=== PATIENT | female | born 1985 | race American Indian/Alaskan Native ===

== ENCOUNTER 2017-05-12 08:58 | Emergency (ER) | payer OTHER ==
--- NOTE | 2017-05-12 09:24 | Emergency Department Report ---
Chief Complaint: Urogenital-Female Stated Complaint: PREG, VAGINAL BLEEDING AND ABDOMINAL PAIN - HPI History of Present Illness: 32-year-old female that presents with dysuria, hematuria, and urgency 1 day. Patient stated when she was wiping after voiding she noticed blood. Patient currently denies any abdominal pain or any vaginal bleeding. - Exam Vital Signs: Vital Signs 05/12/17 09:13 Temperature 98.4 F Pulse Rate 77 Respiratory 18 Rate Blood Pressure 128/81 O2 Sat by Pulse 99 Oximetry Physical Exam: ABDOMEN: Soft, nontender, and nondistended. Positive bowel sounds. No hepatosplenomegaly was noted. No guarding or rebound tenderness, negative epigastric bruit. Negative psoas sign, negative dillon sign, negative McBurneys sign MSE screening note: Focused history and physical exam performed. Due to findings the following was ordered: 1- This initial assessment/diagnostic orders/clinical plan/ treatment(s) is/are subject to change based on pt's health status, clinical progression and re- assessment by fellow clinical providers in the ED. Further treatment and workup at subsequent clinical provers discretion. Patient/guardians urged not to elope from ED as their condition may be serious if not clinically assessed and managed. 2-UA, CBC, BMB, type and screen, preg natacha 3-u/s ED Disposition for MSE Condition: Stable
[2017-05-12 09:53] LABS: Basophils % (Auto) 0.3 % (0.0-1.8); Eosinophils % (Auto) 0.4 % (0.0-4.3); Hematocrit 37.9 % (30.3-42.9); Hemoglobin 12.9 gm/dl (10.1-14.3); Mean Corpuscular HGB Conc 34 % (30-34); Mean Corpuscular Hemoglobin 31 pg (28-32); Mean Corpuscular Volume 92 fl (79-97); Platelet Count 160 K/mm3 (140-440); Red Cell Distribution Width 12.8 % (13.2-15.2); White Blood Count 16.2 K/mm3 (4.5-11.0)
[2017-05-12 10:10] LABS: Anion Gap 16 mmol/L; BUN/Creatinine Ratio 15; Blood Urea Nitrogen 9 mg/dL (7-17); Calcium 9.1 mg/dL (8.4-10.2); Carbon Dioxide 22 mmol/L (22-30); Chloride 100.4 mmol/L (98-107); Glucose 86 mg/dL (65-100); Potassium 4.2 mmol/L (3.6-5.0); Sodium 134 mmol/L (137-145)
--- NOTE | 2017-05-12 11:57 | Ultrasound Report ---
OB ULTRASOUND History well being. Technique: Transabdominal ultrasound with Doppler interrogation. Gestation: Single Position: Transverse, head to maternal right Amniotic Fluid: Within normal limits LISA = not measured cm Placenta: Anterior Placental Grade: 0 Heart Rate: 158 BPM Cervical length: 5.5 cm (Normal > 3 cm) x It is too early for a anatomical survey BPD: 2.5 cm = 14 w 2 d HC: 9.1 cm = 14 w 0 d AC: 7.5 cm = 14 w 0 d FL: 1.3 cm = 14 w 0 d HC/AC Ratio: 1.2 Cephalic Index: 80.2 LMP: 02/11/17 Clinical age = 12 w 6 d EDC: 11/18/17 US Gest. Age = 14 w 1 d EDC: 11/09/17 IMPRESSION: Viable, single intrauterine as described.
[2017-05-12 13:19] LABS: Bacteria,Urine 2+ /HPF (Negative); Bilirubin,Urine NEG (Negative); Blood,Urine LG (Negative); Ketones,Urine NEG (Negative); Leukocyte Esterase,Urine LG (Negative); Mucus,Urine FEW /HPF; Nitrite,Urine NEG (Negative); Protein,Urine <15 mg/dL mg/dL (Negative); Urobilinogen,Urine < 2.0 mg/dL (<2.0)
--- NOTE | 2017-05-12 16:58 | Emergency Department Report ---
HPI - General Chief Complaint: Urogenital-Female Time Seen by Provider: 05/12/17 16:33 - HPI HPI: Room 24 The patient is a 32-year-old female presenting with chief complaint of abdominal pain. The patient is approximately 12 weeks states this morning she developed urinary frequency and abdominal pain. Patient states she had a small amount of burning with urinating. The patient states after wiping herself she noticed blood on the tissue and some on the toilet. The patient states she cannot say with certainty where the blood was coming from she has not had any in her underwear. Patient denies fever, nausea/vomiting or shortness of breath. Location: Abdomen Duration: One day Quality: Burning Severity: Moderate Modifying factors: [see above] Context: [see above] Mode of transportation: Unknown ED Past Medical Hx - Past Medical History Previous Medical History?: Yes - Surgical History Past Surgical History?: Yes Additional Surgical History: x 2, x 1, Left jaw surgery - Family History Family history: no significant - Social History Smoking Status: Never Smoker Substance Use Type: None - Medications Home Medications: Home Medications Medication Instructions Recorded Confirmed Last Taken Type Nitrofurantoin Monohyd/M-Cryst 100 mg PO BID #20 capsule 05/12/17 Unknown Rx [Macrobid 100 mg Capsule] ED Review of Systems ROS: Stated complaint: PREG, VAGINAL BLEEDING AND ABDOMINAL PAIN Other details as noted in HPI Constitutional: chills. denies: fever Respiratory: denies: shortness of breath Gastrointestinal: abdominal pain. denies: nausea, vomiting Genitourinary: dysuria, hematuria, abnormal menses Physical Exam - Physical Exam Vital Signs: Vital Signs 05/12/17 05/12/17 05/12/17 09:13 13:32 13:36 Temperature 98.4 F 98.3 F Pulse Rate 77 81 Respiratory 18 18 Rate Blood Pressure 128/81 Blood Pressure 127/80 [Right] O2 Sat by Pulse 99 99 99 Oximetry 05/12/17 05/12/17 05/12/17 13:46 14:00 14:16 Temperature Pulse Rate Respiratory Rate Blood Pressure 127/80 128/86 128/86 Blood Pressure [Right] O2 Sat by Pulse 98 100 97 Oximetry 05/12/17 05/12/17 05/12/17 14:30 14:46 15:00 Temperature Pulse Rate Respiratory Rate Blood Pressure 128/86 128/86 131/73 Blood Pressure [Right] O2 Sat by Pulse 97 98 97 Oximetry 05/12/17 15:16 Temperature Pulse Rate Respiratory Rate Blood Pressure 128/86 Blood Pressure [Right] O2 Sat by Pulse 99 Oximetry Physical Exam: GENERAL: The patient is well-developed well-nourished female lying on a stretcher not appearing to be in acute distress. [] HEENT: Normocephalic. Atraumatic. Extraocular motions are intact. Patient has moist mucous membranes. NECK: Supple. Trachea midline CHEST/LUNGS: Clear to auscultation. There is no respiratory distress noted. HEART/CARDIOVASCULAR: Regular. There is no tachycardia. There is no gallop rub or murmur. ABDOMEN: Abdomen is soft, with discomfort to palpation in the suprapubic region. Patient has normal bowel sounds. There is no abdominal distention. SKIN: There is no rash. There is no edema. There is no diaphoresis. NEURO: The patient is awake, alert, and oriented. The patient is cooperative. The patient has normal speech MUSCULOSKELETAL: There is no evidence of acute injury. ED Course Vital Signs 05/12/17 05/12/17 05/12/17 09:13 13:32 13:36 Temperature 98.4 F 98.3 F Pulse Rate 77 81 Respiratory 18 18 Rate Blood Pressure 128/81 Blood Pressure 127/80 [Right] O2 Sat by Pulse 99 99 99 Oximetry 05/12/17 05/12/17 05/12/17 13:46 14:00 14:16 Temperature Pulse Rate Respiratory Rate Blood Pressure 127/80 128/86 128/86 Blood Pressure [Right] O2 Sat by Pulse 98 100 97 Oximetry 05/12/17 05/12/17 05/12/17 14:30 14:46 15:00 Temperature Pulse Rate Respiratory Rate Blood Pressure 128/86 128/86 131/73 Blood Pressure [Right] O2 Sat by Pulse 97 98 97 Oximetry 05/12/17 15:16 Temperature Pulse Rate Respiratory Rate Blood Pressure 128/86 Blood Pressure [Right] O2 Sat by Pulse 99 Oximetry ED Medical Decision Making - Lab Data Result diagrams: 05/12/17 09:35 05/12/17 09:35 Laboratory Tests 05/12/17 05/12/17 05/12/17 09:35 09:35 09:35 WBC 16.2 H RBC 4.10 Hgb 12.9 Hct 37.9 MCV 92 MCH 31 MCHC 34 RDW 12.8 L Plt Count 160 Lymph % (Auto) 10.7 L [place] % (Auto) 5.4 Eos % (Auto) 0.4 Baso % (Auto) 0.3 Lymph # 1.7 [place] # 0.9 H Eos # 0.1 Baso # 0.0 Seg Neutrophils % 83.2 H Seg Neutrophils # 13.5 H Sodium 134 L Potassium 4.2 Chloride 100.4 Carbon Dioxide 22 Anion Gap 16 BUN 9 Creatinine 0.6 L Estimated GFR > 60 BUN/Creatinine Ratio 15 Glucose 86 Calcium 9.1 HCG, Quant 60353 H Urine Color Urine Turbidity Urine pH Ur Specific [place] Urine Protein Urine Glucose (UA) Urine Ketones Urine Blood Urine Nitrite Urine Bilirubin Urine Urobilinogen Ur Leukocyte Esterase Urine WBC (Auto) Urine RBC (Auto) U Epithel Cells (Auto) Urine Bacteria (Auto) Urine Mucus Blood Type Antibody Screen 05/12/17 05/12/17 09:35 12:38 WBC RBC Hgb Hct MCV MCH MCHC RDW Plt Count Lymph % (Auto) [place] % (Auto) Eos % (Auto) Baso % (Auto) Lymph # [place] # Eos # Baso # Seg Neutrophils % Seg Neutrophils # Sodium Potassium Chloride Carbon Dioxide Anion Gap BUN Creatinine Estimated GFR BUN/Creatinine Ratio Glucose Calcium HCG, Quant Urine Color Yellow Urine Turbidity Clear Urine pH 6.0 Ur Specific [place] 1.003 Urine Protein <15 mg/dl Urine Glucose (UA) Neg Urine Ketones Neg Urine Blood Lg Urine Nitrite Neg Urine Bilirubin Neg Urine Urobilinogen < 2.0 Ur Leukocyte Esterase Lg Urine WBC (Auto) 61.0 H Urine RBC (Auto) 9.0 U Epithel Cells (Auto) < 1.0 Urine Bacteria (Auto) 2+ Urine Mucus Few Blood Type O POSITIVE Antibody Screen Negative - Radiology Data Radiology results: report reviewed (pelvic ultrasound), image reviewed (pelvic ultrasound) OB ULTRASOUND History well being. Technique: Transabdominal ultrasound with Doppler interrogation. Gestation: Single Position: Transverse, head to maternal right Amniotic Fluid: Within normal limits LISA = not measured cm Placenta: Anterior Placental Grade: 0 Heart Rate: 158 BPM Cervical length: 5.5 cm (Normal > 3 cm) x It is too early for a anatomical survey BPD: 2.5 cm = 14 w 2 d HC: 9.1 cm = 14 w 0 d AC: 7.5 cm = 14 w 0 d FL: 1.3 cm = 14 w 0 d HC/AC Ratio: 1.2 Cephalic Index: 80.2 LMP: 02/11/17 Clinical age = 12 w 6 d EDC: 11/18/17 US Gest. Age = 14 w 1 d EDC: 11/09/17 IMPRESSION: Viable, single intrauterine as described. Transcribed By: TTR Dictated By: AINSLEY MARTINEZ JR, MD Electronically Authenticated By: AINSLEY MARTINEZ JR, MD Signed Date/Time: 05/12/17 1152 DD/ 1148 TD/TT: 05/12/17 1152 - Differential Diagnosis threatened , UTI, spontaneous Critical care attestation.: If time is entered above; I have spent that time in minutes in the direct care of this critically ill patient, excluding procedure time. ED Disposition Clinical Impression: UTI (urinary tract infection), Threatened Disposition: DC-01 TO HOME OR SELFCARE Is pt being admited?: No Does the pt Need Aspirin: No Condition: Stable Instructions: Threatened Miscarriage (ED), Urinary Tract Infection in Women (ED ) Additional Instructions: Return to the emergency department immediately should you develop worsening symptoms, fever, inability to tolerate food or liquid or any other concerns. Prescriptions: Nitrofurantoin Monohyd/M-Cryst [Macrobid 100 mg Capsule] 100 mg PO BID #20 capsule Referrals: [facility] [Provider Group] - 3-5 Days Time of Disposition: 17:03
[2017-05-12 17:14] VITALS: BP 146/92
== END 2017-05-12 17:19 | disposition home or self-care (01) ==
LOC: ED 08:58
DX: O23.41 Unspecified infection of urinary tract in pregnancy, first trimester (principal); O20.0 Threatened abortion; Z3A.12 12 weeks gestation of pregnancy
CPT/HCPCS: 36415; 76805; 80048; 81001; 84702; 85025; 86850; 86900; 86901; 87086

== ENCOUNTER 2017-10-08 16:49 | Observation (INO) | payer OTHER ==
--- NOTE | 2017-10-08 22:03 | History and Physical Report ---
History of Present Illness Date of examination: 10/08/17 Date of admission: 10/08/17 20:14 Chief complaint: Elevated BP's History of present illness: Pt is a 32yo BF EDC 11/18/17; EGA 34 1/7 weeks presents from the office of [facility] [employer] [facility] for BP monitoring for Chronic hypertension with suspected superimposed preeclampsia. Her BP was 165/99 and 154/94 despite being on Labetolol 300mg BID. She complains of headaches and swollen hands, but denies blurred vision, contractions or bleeding. She has a history of Preeclampsia, Previous C Section x 2 and Chronic hypertension for which she is co-managed by [facility]. She will now be admitted for evaluation of Preeclampsia with PIH labs, 24hour urine for protein and BPP with LISA. 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 Family/Genetic History: heart disease, hypertension, cancer Social history: no significant social history, - Obstetrical History Expected Date of Delivery: 11/18/17 Actual Gestation: 34 Week(s) 1 Day(s) Medications and Allergies Allergies Allergy/AdvReac Type Severity Reaction Status Date / Time No Known Allergies Allergy Unverified 05/12/17 09:13 Home Medications Medication Instructions Recorded Confirmed Last Taken Type Nitrofurantoin Monohyd/M-Cryst 100 mg PO BID #20 capsule 05/12/17 Unknown Rx [Macrobid 100 mg Capsule] Review of Systems All systems: negative - Physical Exam Breasts: Positive: deferred Cardiovascular: Regular rate Lungs: Positive: Clear to auscultation Abdomen: Positive: normal appearance Genitourinary (Female): Positive: normal external genitalia Uterus: Positive: enlarged - Obstetrical FHR: category 1 Uterine Contraction Monitor Mode: External Uterine Contraction Pattern: Absent Results All other labs normal. Assessment and Plan - Patient Problems (1) 34 weeks gestation of Onset Date: 10/08/17 Current Visit: Yes Status: Acute Plan to address problem: A: IUP @ 34 1/7 weeks Chronic hypertension with superimposed preeclampsia Previous C Section x 2 Obesity P: Admit for Observation and evaluation for Preeclampsia (PIH labs, 24 hour urine for protein, BPP with LISA in AM) [facility] consultation (2) Previous section Onset Date: 10/08/17 Current Visit: Yes Status: Acute (3) Chronic hypertension with superimposed pre-eclampsia Onset Date: 10/08/17 Current Visit: Yes Status: Acute (4) Obesity Onset Date: 10/08/17 Current Visit: Yes Status: Acute Qualifiers: Obesity type: due to excess calories Obesity classification: adult class 1 (BMI 30 - 34.9)
[2017-10-08] MEDS ORDERED: APRESOLINE IV PRN (22:24)
[2017-10-08 23:10] LABS: Hematocrit 32.5 % (30.3-42.9); Hemoglobin 11.1 gm/dl (10.1-14.3); Mean Corpuscular HGB Conc 34 % (30-34); Mean Corpuscular Hemoglobin 31 pg (28-32); Mean Corpuscular Volume 91 fl (79-97); Platelet Count 145 K/mm3 (140-440); Red Blood Count 3.57 M/mm3 (3.65-5.03); Red Cell Distribution Width 13.1 % (13.2-15.2)
[2017-10-08] MEDS: CELESTONE SOLUSPAN IM SCH (23:15)
[2017-10-08] MEDS: NORMODYNE PO SCH (23:16)
[2017-10-08 23:23] LABS: BUN/Creatinine Ratio 20; Blood Urea Nitrogen 12 mg/dL (7-17); Calcium 8.4 mg/dL (8.4-10.2); Hemolysis Index 2
[2017-10-08] MEDS: TYLENOL PO PRN (23:24)
[2017-10-09] MEDS: LACTATED RINGERS 1,000 ML IV SCH ×3 (01:40→18:08)
--- NOTE | 2017-10-09 02:28 | Ultrasound Report ---
FINAL REPORT EXAM: US OB BPP WO NON-STRESS, US OB LIMITED HISTORY: well being, LISA. Chronic hypertension. TECHNIQUE: Directed limited transabdominal ultrasound examination of the gravid pelvis was performed. No prior studies are available for comparison. FINDINGS: The patient reports her last menstrual period 02/11/2017, corresponding to current gestational age of 34 weeks, 1 day. A single live intrauterine gestation is seen, with cephalic presentation. The amniotic fluid index measures 8.9 cm, within normal limits. The biophysical profile is 8/8. cardiac activity is identified, with a heart rate of 155 beats per minute. IMPRESSION: 1. Biophysical profile 8/8. 2. Normal amniotic fluid index, measuring 8.9 cm.
--- NOTE | 2017-10-09 08:36 | Progress Note ---
Assessment and Plan A: 32-year-old at 34+2 weeks with chronic hypertension r/o Pre-E -Cat 1 tracing -Labile BP's - 133-148/70-90's Issues -No MFM consultation since ~24 wks (?complains about cost) -CHTN on Labetalol 300mg BID -Previous C/S # 2 -Previous hx of Pre-E -s/p BMZ course -s/p BPP 01/27 (10/08/17) -no growth on chart at this time P: -Await 24-hour urine protein and liver function tests -MFM consultation placed -Growth scan now -Type and screen -Continue ASA -Discussed permanent sterilization and provided consent form - Patient Problems (1) 34 weeks gestation of Onset Date: 10/08/17 Current Visit: Yes Status: Acute (2) Previous section Onset Date: 10/08/17 Current Visit: Yes Status: Acute (3) Hypertension affecting in third trimester Current Visit: Yes Status: Acute Subjective - Subjective Date of service: 10/09/17 Principal diagnosis: IUP at 34+2 wks, CHTN r/o Pre-E Interval history: Patient seen and examined, stable and well. BP range has been 133-148/70-90, she has no signs or symptoms of preeclampsia at this time, headache last night resolved. She is in process of completing her Celestone course and 24-hour urine protein is in progress BPP last night 8 out of 8 and LISA ~ 9 HELLP labs wnl but await LFT's Patient reports: new complaints, movement normal, no loss of fluid, no vaginal bleeding, no contractions Objective - Vital Signs Vital Signs: Vital Signs - 12hr 10/08/17 10/09/17 10/09/17 23:16 00:05 04:03 Temperature 98 F 97.8 F Pulse Rate 100 H 84 95 H Respiratory 18 18 Rate Blood Pressure 137/82 Blood Pressure 133/79 141/82 [Left] O2 Sat by Pulse 98 95 Oximetry 10/09/17 10/09/17 07:41 07:42 Temperature 97.7 F Pulse Rate 94 H Respiratory 18 Rate Blood Pressure Blood Pressure 123/75 [Left] O2 Sat by Pulse Oximetry - Exam Abdomen: Present: normal appearance, soft. Absent: distention, tenderness, guarding, rigidity Uterus: Absent: firm FHR: category 1 - Labs Labs: Abnormal Labs 10/08/17 10/08/17 22:56 22:56 WBC 11.4 H RBC 3.57 L RDW 13.1 L Creatinine 0.6 L Glucose 134 H Laboratory Results - last 24 hr 10/08/17 10/08/17 10/08/17 22:56 22:56 22:56 WBC 11.4 H RBC 3.57 L Hgb 11.1 Hct 32.5 MCV 91 MCH 31 MCHC 34 RDW 13.1 L Plt Count 145 Sodium 138 Potassium 4.0 Chloride 103.1 Carbon Dioxide 22 Anion Gap 17 BUN 12 Creatinine 0.6 L Estimated GFR > 60 BUN/Creatinine Ratio 20 Glucose 134 H Uric Acid 3.9 Calcium 8.4
[2017-10-09] MEDS: NORMODYNE PO SCH ×2 (09:59→22:34)
[2017-10-09] MEDS ORDERED: BABY ASPIRIN PO SCH (10:00)
[2017-10-09] MEDS: TYLENOL PO PRN (10:01)
--- NOTE | 2017-10-09 12:31 | Consultation ---
History of Present Illness Reason for consult: other (Pt is a 32yo BF EDC 11/18/17; EGA 34 2/7 weeks presented from the office of [facility] for BP monitoring for Chronic hypertension with suspected superimposed preeclampsia. Her BP was 165/99 and 154 /94 despite being on Labetolol 300mg BID. She complained of headaches and swollen hands, but denied blurred vision, contractions or bleeding. Previous C Section x 2 and Chronic hypertension for which she was co-managed by [facility]. Pt missed last 6 appt. Last appointment was 08/10/17 @ 25.5 weeks She was admitted for evaluation of superimposed Preeclampsia with PIH labs, 24hour urine for protein and BPP . During today's consult serial BP of 126/75 and 134/ 73 mm Hg . 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 Family/Genetic History: heart disease, hypertension, cancer - Obstetrical History : 4 Medications and Allergies Allergies Allergy/AdvReac Type Severity Reaction Status Date / Time No Known Allergies Allergy Unverified 05/12/17 09:13 Home Medications Medication Instructions Recorded Confirmed Last Taken Type No Known Home Medications [No 10/09/17 10/09/17 Unknown History Reported Home Medications] Active Meds: Active Medications Acetaminophen (Tylenol) 650 mg PO Q6H PRN PRN Reason: Pain, Mild (1-3) Last Admin: 10/09/17 10:01 Dose: 650 mg Aspirin (Baby Aspirin) 81 mg PO QDAY [facility] Betamethasone Acet/Betameth SodPhos (Celestone Soluspan) 12 mg IM Q24H LUCIANA Stop: 10/09/17 22:01 Last Admin: 10/08/17 23:15 Dose: 12 mg Hydralazine HCl (Apresoline) 5 mg IV Q30MIN PRN PRN Reason: Hypertension Lactated Ringer's (Lactated Ringers) 1,000 mls @ 125 mls/hr IV DIRECT LUCIANA Last Admin: 10/09/17 10:14 Dose: 125 mls/hr Labetalol HCl (Normodyne) 300 mg PO BID [facility] Last Admin: 10/09/17 09:59 Dose: 300 mg Review of Systems Constitutional: no fever Eyes: other (scotoma ), no blurred vision, no photophobia Cardiovascular: high blood pressure (under medical regimen . Serial BP of 126/ 75 and 134/73 mm Hg ), no chest pain Respiratory: no shortness of breath Breasts: deferred Gastrointestinal: no abdominal pain, no nausea, no vomiting, no indigestion Genitourinary: other (voiding w/out difficulty ), no vaginal bleeding, no vaginal discharge, no leakage of fluid, no pelvic pain, no contractions Rectal Exam: deferred Musculoskeletal: no low back pain Integumentary: no rash Neurological: no headaches Hematologic/Lymphatic: no easy bruising - Vital Signs Vital signs: Vital Signs Temp Pulse Resp BP 98.4 F 82 18 148/93 10/08/17 20:05 10/08/17 20:05 10/08/17 20:05 10/08/17 20:05 Temp Pulse Resp BP Pulse Ox 97.7 F 94 H 20 126/75 95 10/09/17 07:41 10/09/17 09:59 10/09/17 10:01 10/09/17 09:59 10/09/17 04:03 - Physical Exam Breasts: Positive: deferred Cardiovascular: Regular rate Lungs: Positive: Normal air movement Abdomen: Negative: tenderness, guarding Uterus: Positive: other (gravid ). Negative: tender Deep Tendon Reflex Grade: Normal +2 - Obstetrical FHR: category 1 Uterine Contraction Monitor Mode: External Uterine Contraction Pattern: Absent Results Result Diagrams: 10/08/17 22:56 10/08/17 22:56 Abnormal lab results 10/08/17 10/08/17 Range/Units 22:56 22:56 WBC 11.4 H (4.5-11.0) K/mm3 RBC 3.57 L (3.65-5.03) M/mm3 RDW 13.1 L (13.2-15.2) % Creatinine 0.6 L (0.7-1.2) mg/dL Glucose 134 H (65-100) mg/dL All other labs normal. 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 Jenkins
--- NOTE | 2017-10-09 17:17 | Ultrasound Report ---
FINAL REPORT EXAM: US OB FOLLOW UP HISTORY: CHTN TECHNIQUE: Ultrasound evaluation of the gravid uterus PRIORS: 10/08/2017 FINDINGS: There is a single viable intrauterine with documented cardiac activity. Multiple ultrasound measurements are made to determine a composite gestational age. ratios are within normal limits. There is no evidence of placenta previa or abruption. The maternal cervix is obscured by head. The quantity of visualized amniotic fluid appears grossly normal. No sonographic abnormality in the limited visualized portion of the anatomy. Heart rate: 138 beats per minute position: Cephalic Placental position: Anterior, grade 1 Amniotic fluid index: 7.5cm Estimated weight: 2656 g Growth percentile by ultrasound: 76 Ultrasound estimated gestational age: 35 weeks 0 days Ultrasound estimated delivery date: 11/13/2017 LMP estimated gestational age: 34 weeks 2 days LMP estimated delivery date: 11/18/2017 IMPRESSION: Single viable intrauterine with the above parameters
[2017-10-09 18:05] LABS: Total Volume,Urine 6200
[2017-10-09] MEDS: CELESTONE SOLUSPAN IM SCH (22:33)
[2017-10-10 00:08] VITALS: BP 132/82
[2017-10-10] MEDS: LACTATED RINGERS 1,000 ML IV SCH (02:22)
--- NOTE | 2017-10-10 06:58 | Discharge Summary ---
Providers - Providers Date of Admission: 10/08/17 20:14 Date of discharge: 10/10/17 Attending physician: SUZANNE BARTON MD 10/09/17 08:30 Consult to Physician [CONS] Routine Comment: Consulting Provider: LORI GUTIERREZ Physician Instructions: Reason For Exam: pre-eclampsia at 34 wks Primary care physician: SUZANNE BARTON MD Hospitalization Reason for admission: IUP - (IUP at 34+1 chronic hypertension rule out superimposed), observation Discharge diagnosis: other (IUP at 34+3 with chronic hypertension) Hospital course: Pt is a 32yo BF EDC 11/18/17; EGA 34 1/7 weeks presents from the office of [facility] [employer] for BP monitoring for Chronic hypertension with suspected superimposed preeclampsia. Her BP was 165/99 and 154/94 despite being on Labetolol 300mg BID. She complains of headaches and swollen hands, but denies blurred vision, contractions or bleeding. She has a history of Preeclampsia, Previous C Section x 2 and Chronic hypertension for which she is co-managed by [facility]. She will now be admitted for evaluation of Preeclampsia with PIH labs, 24hour urine for protein and BPP with LISA. Patient's blood pressure on admission ranged from 120-140/70-90; HELLP labs were negative She was asymptomatic for preeclampsia 24 hour urine protein obtained was 248mg She had a growth scan and BPP which were within normal He was seen by MFM on consultation basis Completed a course of steroids yesterday (10/09/17) She is discharged home at 34+3 weeks in stable condition to follow-up in clinic and MFM office Note that she signed tubal ligation consent form Condition at discharge: Good Disposition: DC-01 TO HOME OR SELFCARE - Discharge Diagnoses (1) 34 weeks gestation of Status: Acute (2) Previous section Status: Acute (3) Hypertension affecting in third trimester Status: Acute Plan - Provider Discharge Summary Activity: no sex for 6 weeks, no heavy lifting 4 weeks, no strenuous exercise Diet: routine Additional instructions: [] Smoking cessation referral if applicable(refer to patient education folder for contact #) [] Refer to [facility] Booklet Call your doctor immediately for: * Fever > 100.5 * Heavy vaginal bleeding ( >1 pad per hour) * Severe persistent headache * Shortness of breath * Reddened, hot, painful area to leg or breast * Drainage or odor from incision. * Keep incision clean and dry at all times and follow doctor's instructions regarding bathing/showering - Follow up plan Follow up: SUZANNE BARTON MD [Primary Care Provider] - 7 Days RANGEL INIGUEZ MD [Staff Physician] - 7 Days
== END 2017-10-10 07:20 | disposition home or self-care (01) ==
LOC: TRG 16:49 → LD 16:50 → TRG 20:14 → LD 20:14
PROVIDERS: ADMIT Obstetrics & Gynecology; ATTEND Obstetrics & Gynecology
DX: O13.3 Gestational [pregnancy-induced] hypertension without significant proteinuria, third trimester (principal); Z3A.34 34 weeks gestation of pregnancy; O99.213 Obesity complicating pregnancy, third trimester; Z68.29 Body mass index [BMI] 29.0-29.9, adult
CPT/HCPCS: 36415; 76815; 76816; 76819; 80048; 84156; 84550; 85027; 86850; 86900; 86901; 96360; 96361; 96372; G0378; J0702; J7120

== ENCOUNTER 2017-10-14 18:37 | Observation (INO) | payer OTHER ==
[2017-10-14 19:41] LABS: Amorphous Crystals,Urine Few; Bilirubin,Urine NEG (Negative); Blood,Urine NEG (Negative); Color,Urine Yellow (Yellow); Mucus,Urine 3+ /HPF; Urobilinogen,Urine < 2.0 mg/dL (<2.0)
[2017-10-14 20:04] LABS: Hematocrit 33.9 % (30.3-42.9); Hemoglobin 11.5 gm/dl (10.1-14.3); Mean Corpuscular HGB Conc 34 % (30-34); Mean Corpuscular Hemoglobin 31 pg (28-32); Mean Corpuscular Volume 91 fl (79-97); Platelet Count 173 K/mm3 (140-440); Red Blood Count 3.74 M/mm3 (3.65-5.03); Red Cell Distribution Width 12.8 % (13.2-15.2)
[2017-10-14 20:27] LABS: Alanine Aminotransferase 12 units/L (7-56); Uric Acid 4.7 mg/dL (3.5-7.6)
--- NOTE | 2017-10-14 21:47 | Ultrasound Report ---
FINAL REPORT PROCEDURE: US OB LIMITED TECHNIQUE: Real-time limited sonographic examination was performed for evaluation of amniotic fluid volume for each fetus with image documentation (1 or more fetuses). CPT 05671 HISTORY: well being, martín COMPARISON: No prior studies are available for comparison. FINDINGS: A single live intrauterine gestation is identified with a heart rate of 139 beats per minute. Amniotic fluid index is 6.6 centimeters IMPRESSION: Amniotic fluid index is 6.6 centimeters the most likely representing borderline oligohydramnios.
[2017-10-14] MEDS: NORMODYNE PO SCH (22:22)
--- NOTE | 2017-10-15 09:23 | History and Physical Report ---
History of Present Illness Date of examination: 10/14/17 Date of admission: 10/14/17 21:14 Chief complaint: SIUP at 35 weeks, CHTN and headache. History of present illness: Patient is a 32 year old , LMP 02/04/17, EDC 11/18/17 at 35 weeks gestation who was sent from the office for elevated BP. She went for a routine visit and complained of having headache x 2 days. She has chronic HTN and has been on labetolol 300 mg BID. She had seen [facility] earlier but stopped going for her follow up visits. Last week, she was admitted for elevated BP which normalized after bedrest. Toxemia labs were normal. LISA was 7.3. Today, she denies any contractions, fluid leakage or bleeding. She reports good movement. BP has become stable since admission. Toxemia were normal today. Sonogram showed LISA of 4.1 cm. tracing has been CAT 1. 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 Family/Genetic History: none Social history: no significant social history - Obstetrical History Expected Date of Delivery: 11/18/17 Actual Gestation: 35 Week(s) 1 Day(s) : 4 Para: 2 Spontaneous Abortions: 1 Number of Living Children: 2 Medications and Allergies Allergies Allergy/AdvReac Type Severity Reaction Status Date / Time No Known Allergies Allergy Unverified 05/12/17 09:13 Home Medications Medication Instructions Recorded Confirmed Last Taken Type Aspirin [Aspirin BABY CHEW TAB] 81 mg PO QDAY 10/14/17 10/14/17 10/14/17 History Labetalol [Normodyne] 300 mg PO BID 10/14/17 10/14/17 10/14/17 History Active Meds: Active Medications Labetalol HCl (Normodyne) 300 mg PO BID LUCIANA Last Admin: 10/14/17 22:22 Dose: 300 mg - Vital Signs Vital signs: Vital Signs Pulse BP 80 129/74 10/14/17 22:22 10/14/17 22:22 Temp Pulse Resp BP Pulse Ox 98.3 F 84 20 122/64 10/15/17 08:30 10/15/17 08:30 10/15/17 08:30 10/15/17 08:30 - Physical Exam Cardiovascular: Normal S1, Normal S2 Lungs: Positive: Clear to auscultation Vulva: both: normal Adnexa: both: normal Deep Tendon Reflex Grade: Normal +2 - Obstetrical FHR: category 1 Uterine Contraction Monitor Mode: External Cervical Dilatation: 0 Cervical Effacement Percentage: 0 station: -3 Uterine Contraction Pattern: Absent Results Result Diagrams: 10/14/17 19:50 10/14/17 19:50 Abnormal lab results 10/14/17 10/14/17 Range/Units 19:50 Unknown WBC 14.2 H (4.5-11.0) K/mm3 RDW 12.8 L (13.2-15.2) % U Epithel Cells (Auto) 22.0 H (0-13.0) /HPF All other labs normal. Assessment and Plan - Patient Problems (1) 35 weeks gestation of Current Visit: Yes Status: Acute (2) Chronic hypertension affecting Current Visit: Yes Status: Acute Plan to address problem: Patient is on labetolol 300 mg BID. Toxemia labs were normal. 24-hr urine in progress. Will continue to monitor BP, DTRs. F/U 24-hr urine result. (3) Obesity Onset Date: 10/08/17 Current Visit: No Status: Acute Qualifiers: Obesity type: due to excess calories Obesity classification: adult class 1 (BMI 30 - 34.9) (4) Previous section Onset Date: 10/08/17 Current Visit: No Status: Acute Plan to address problem: Will deliver by C/section iof delivery becomes necessary. (5) Vitamin D deficiency Current Visit: Yes Status: Acute (6) Anemia Current Visit: Yes Status: Acute Qualifiers: Anemia type: iron deficiency (7) Oligohydramnios Current Visit: Yes Status: Acute Plan to address problem: Will get [facility] consult. Will repeat sonogram for LISA.
[2017-10-15] MEDS: NORMODYNE PO SCH (10:22)
[2017-10-15] MEDS ORDERED: LACTATED RINGERS 1,000 ML IV SCH (12:00)
--- NOTE | 2017-10-15 14:03 | Ultrasound Report ---
ULTRASOUND OB LIMITED History: Oligohydramnios Technique: Transabdominal ultrasound with Doppler interrogation. Gestation: Single Position: Cephalic Amniotic Fluid: Decreased LISA = 6 cm Heart Rate: 153 BPM
--- NOTE | 2017-10-15 14:21 | Progress Note ---
Assessment and Plan - Patient Problems (1) 35 weeks gestation of Current Visit: Yes Status: Acute (2) Chronic hypertension affecting Current Visit: Yes Status: Acute Plan to address problem: Patient is on labetolol 300 mg BID. Toxemia labs were normal. 24-hr urine in progress. Will continue to monitor BP, DTRs. F/U 24-hr urine result. (3) Obesity Onset Date: 10/08/17 Current Visit: No Status: Acute Qualifiers: Obesity type: due to excess calories Obesity classification: adult class 1 (BMI 30 - 34.9) (4) Previous section Onset Date: 10/08/17 Current Visit: No Status: Acute Plan to address problem: Will deliver by C/section iof delivery becomes necessary. (5) Vitamin D deficiency Current Visit: Yes Status: Acute (6) Anemia Current Visit: Yes Status: Acute Qualifiers: Anemia type: iron deficiency (7) Oligohydramnios Current Visit: Yes Status: Acute Plan to address problem: I spoke with Cheo from [facility] via phone this AM. He recommended to observe if the ILSA is over 5. Sonogram showed LISA of 6 and BPP 8/8. I discussed that with the patient. I told her that she can be discharged home with toxemia precautions. She needs to follow up in 2 days for NST/BPP and LISA. She will F/U in the office on thursday. Subjective - Subjective Date of service: 10/15/17 Principal diagnosis: SIUP at 35 weeks and 1 day with ChTN and oligohydramnios Interval history: Patient is a 32 year old , LMP 02/04/17, EDC 11/18/17 at 35 weeks and 1 day gestation who was sent from the office for elevated BP. She went for a routine visit and complained of having headache x 2 days. She has chronic HTN and has been on labetolol 300 mg BID. She had seen [facility] earlier but stopped going for her follow up visits. Last week, she was admitted for elevated BP which normalized after bedrest. Toxemia labs were normal. LISA was 7.3. Today, she denies any contractions, fluid leakage or bleeding. She reports good movement. BP has become stable since admission. Toxemia were normal today. Sonogram showed LISA of 4.1 cm last night. tracing has been CAT 1. Today, she denies any complaint. BP stable, tracing has been CAT 1, BPP 8/ 8, LISA 6.0. Objective - Vital Signs Vital Signs: Vital Signs - 12hr 10/15/17 10/15/17 10/15/17 02:57 03:57 04:55 Temperature Pulse Rate 62 75 64 Respiratory Rate Blood Pressure Blood Pressure 143/69 118/59 122/63 [Right] 10/15/17 10/15/17 10/15/17 05:25 08:30 10:22 Temperature 98.3 F Pulse Rate 76 84 77 Respiratory 20 Rate Blood Pressure 155/86 Blood Pressure 120/63 122/64 [Right] 10/15/17 12:07 Temperature 97.8 F Pulse Rate 69 Respiratory 20 Rate Blood Pressure Blood Pressure 149/83 [Right] - Exam Cardiovascular: Normal S1, Normal S2 Lungs: Clear to auscultation Vulva: both: normal FHR: category 1 Uterine Contraction Monitor Mode: External Cervical Dilatation: 0 Cervical Effacement Percentage: 0 station: -3 Uterine Contraction Pattern: Absent Deep Tendon Reflex Grade: Normal +2 - Labs Labs: Abnormal Labs 10/14/17 10/14/17 19:50 Unknown WBC 14.2 H RDW 12.8 L U Epithel Cells (Auto) 22.0 H Laboratory Results - last 24 hr 10/14/17 10/14/17 10/14/17 19:50 19:50 21:20 WBC 14.2 H RBC 3.74 Hgb 11.5 Hct 33.9 MCV 91 MCH 31 MCHC 34 RDW 12.8 L Plt Count 173 Creatinine 0.7 Estimated GFR > 60 Uric Acid 4.7 AST 9 ALT 12 Lactate Dehydrogenase 142 Urine Color Urine Turbidity Urine pH Ur Specific Elizabeth Urine Protein Urine Glucose (UA) Urine Ketones Urine Blood Urine Nitrite Urine Bilirubin Urine Urobilinogen Ur Leukocyte Esterase Urine WBC (Auto) Urine RBC (Auto) U Epithel Cells (Auto) Amorphous Crystals Urine Mucus Blood Type O POSITIVE Antibody Screen Negative 10/14/17 Unknown WBC RBC Hgb Hct MCV MCH MCHC RDW Plt Count Creatinine Estimated GFR Uric Acid AST ALT Lactate Dehydrogenase Urine Color Yellow Urine Turbidity Cloudy Urine pH 5.0 Ur Specific Elizabeth 1.029 Urine Protein 100 mg/dl Urine Glucose (UA) Neg Urine Ketones Tr Urine Blood Neg Urine Nitrite Neg Urine Bilirubin Neg Urine Urobilinogen < 2.0 Ur Leukocyte Esterase Lg Urine WBC (Auto) 6.0 Urine RBC (Auto) 9.0 U Epithel Cells (Auto) 22.0 H Amorphous Crystals Few Urine Mucus 3+ Blood Type Antibody Screen
--- NOTE | 2017-10-15 14:35 | Discharge Summary ---
Providers - Providers Date of Admission: 10/14/17 21:14 Date of discharge: 10/15/17 Attending physician: SUZANNE BARTON MD Primary care physician: SUZANNE BARTON MD Hospitalization Reason for admission: other (CHTN) Condition at discharge: Stable Disposition: [id number] TO HOME OR SELFCARE - Discharge Diagnoses (1) 35 weeks gestation of Status: Acute (2) Chronic hypertension affecting Status: Acute (3) Obesity Status: Acute Qualifiers: Obesity type: due to excess calories Obesity classification: adult class 1 (BMI 30 - 34.9) (4) Previous section Status: Acute (5) Vitamin D deficiency Status: Acute (6) Anemia Status: Acute Qualifiers: Anemia type: iron deficiency (7) Oligohydramnios Status: Acute Plan - Provider Discharge Summary Activity: routine Diet: routine Additional instructions: [] Smoking cessation referral if applicable(refer to patient education folder for contact #) [] Refer to [facility]'s [facility] Booklet Call your doctor immediately for: * Fever > 100.5 * Heavy vaginal bleeding ( >1 pad per hour) * Severe persistent headache * Shortness of breath * Reddened, hot, painful area to leg or breast * Drainage or odor from incision. * Keep incision clean and dry at all times and follow doctor's instructions regarding bathing/showering Return to the hosppital in 2 days for sonogram LISA/BPP and NST. Return to hospital if any headache or RUQ pain. F/U in office on thursday (4 days). - Follow up plan Follow up: SUZANNE BARTON MD [Primary Care Provider] - 7 Days
[2017-10-15 14:59] VITALS: BP 132/70
== END 2017-10-15 16:40 | disposition home or self-care (01) ==
LOC: TRG 18:37 → LD 21:14
PROVIDERS: ADMIT Obstetrics & Gynecology; ATTEND Obstetrics & Gynecology
DX: O10.013 Pre-existing essential hypertension complicating pregnancy, third trimester (principal); O41.03X0 Oligohydramnios, third trimester, not applicable or unspecified; O99.213 Obesity complicating pregnancy, third trimester; E66.9 Obesity, unspecified; O34.219 Maternal care for unspecified type scar from previous cesarean delivery; O99.113 Other diseases of the blood and blood-forming organs and certain disorders involving the immune mechanism complicating pregnancy, third trimester; E55.9 Vitamin D deficiency, unspecified; D50.9 Iron deficiency anemia, unspecified; Z68.39 Body mass index [BMI] 39.0-39.9, adult; Z3A.35 35 weeks gestation of pregnancy
CPT/HCPCS: 36415; 76815; 81001; 82565; 83615; 84450; 84460; 84550; 85027; 86850; 86900; 86901; 96360; 96361; G0378

== ENCOUNTER 2017-10-17 17:46 | Outpatient (CLI) | payer OTHER ==
[2017-10-17] MEDS ORDERED: LACTATED RINGERS 500 ML IV ONE (18:37)
--- NOTE | 2017-10-17 19:28 | Ultrasound Report ---
FINAL REPORT EXAM: US OB LIMITED HISTORY: LISA TECHNIQUE: Transabdominal sonography of the pelvis for LISA determination. PRIORS: 14 October 2017. FINDINGS: There is a single, live intrauterine in cephalic presentation. heart motion is detected and heart rate is 146 beats per minute. Placenta is located anterior and there is no evidence of previa. Amniotic fluid index is 6.6 cm, stable. Remainder of the uterus and adnexa grossly unremarkable. IMPRESSION: 1. Single, live intrauterine . 2. Decreased LISA corresponding to approximate 2nd %tile for 36 weeks gestation.
--- NOTE | 2017-10-17 19:31 | Ultrasound Report ---
FINAL REPORT EXAM: US OB BPP WO NON-STRESS HISTORY: WELLBEING TECHNIQUE: Transabdominal sonography of the pelvis. PRIORS: 08 October 2017. FINDINGS: Biophysical profile: breathing movements: 2/2 movements: 2/2 posterior and Tone: 2/2 Qualitative amniotic fluid volume (maximum vertical pocket): 2/2 Total: 8/8 heart rate 146 beats per minute. IMPRESSION: 1. Biophysical profile as noted above.
[2017-10-17 23:26] LABS: Creatinine 24 Hour,Urine 2.1 (0.8-2.8); Total Volume,Urine 5400
== END 2017-10-17 19:42 | disposition home or self-care (01) ==
LOC: TRG 17:46
PROVIDERS: ATTEND Obstetrics & Gynecology
DX: O47.03 False labor before 37 completed weeks of gestation, third trimester (principal); Z3A.35 35 weeks gestation of pregnancy
CPT/HCPCS: 59025; 76815; 76819; 82570; 84156

== ENCOUNTER 2017-10-26 15:26 | Inpatient (IN) | payer OTHER ==
[2017-10-26] MEDS ORDERED: REGLAN IV ONE (16:14)
[2017-10-26] MEDS ORDERED: PEPCID IV ONE ×2 (16:14→20:46)
[2017-10-26] MEDS ORDERED: BICITRA PO ONE (16:14)
[2017-10-26] MEDS ORDERED: ANCEF/STERILE WATER 2 GM/20 ML IV NR (17:00)
[2017-10-26] MEDS: LACTATED RINGERS 1,000 ML IV SCH ×2 (17:00→20:39)
[2017-10-26 17:23] LABS: Basophils % (Auto) 0.3 % (0.0-1.8); Eosinophils # (Auto) 0.1 K/mm3 (0.0-0.4); Eosinophils % (Auto) 0.8 % (0.0-4.3); Hematocrit 37.5 % (30.3-42.9); Lymphocytes # (Auto) 2.1 K/mm3 (1.2-5.4); Lymphocytes % (Auto) 19.2 % (13.4-35.0); Mean Corpuscular HGB Conc 35 % (30-34); Mean Corpuscular Hemoglobin 31 pg (28-32); Mean Corpuscular Volume 91 fl (79-97); Monocytes # (Auto) 0.8 K/mm3 (0.0-0.8); Monocytes % (Auto) 7.8 % (0.0-7.3); Platelet Count 161 K/mm3 (140-440); Red Blood Count 4.14 M/mm3 (3.65-5.03); Red Cell Distribution Width 13.1 % (13.2-15.2)
--- NOTE | 2017-10-26 18:58 | History and Physical Report ---
History of Present Illness Date of examination: 10/26/17 Date of admission: 10/26/17 15:26 Chief complaint: Repeat C Section with BTL History of present illness: Pt is a 32yo BF EDC 11/18/17; EGA 36 5/7 weeks presents for Repeat C Section per [facility] due to Chronic hypertension and history of Preeclampsia x 2. She received care at [facility] [employer] [facility] since 6 weeks and co-managed by [facility] due to Previous C Section x 2; Chronic hypertension on Labetolol 300mg BID and Preeclampsia x 2. records are available and GBS is Positive. She also desires permanent sterilization. 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 Family/Genetic History: heart disease, hypertension, cancer Social history: no significant social history, - Obstetrical History : 4 Medications and Allergies Allergies Allergy/AdvReac Type Severity Reaction Status Date / Time No Known Allergies Allergy Unverified 05/12/17 09:13 Home Medications Medication Instructions Recorded Confirmed Last Taken Type Aspirin [Aspirin BABY CHEW TAB] 81 mg PO QDAY 10/14/17 10/26/17 10/26/17 14:00 History Labetalol [Normodyne] 300 mg PO BID 10/14/17 10/26/17 10/26/17 07:30 History Active Meds: Active Medications Cefazolin Sodium (Ancef/Sterile Water 2 Gm/20 Ml) 2 gm IV PREOP NR Stop: 10/26/17 23:59 Lactated Ringer's (Lactated Ringers) 1,000 mls @ 2,250 mls/hr IV PREOP LUCIANA Stop: 10/27/17 17:27 Last Admin: 10/26/17 17:00 Dose: 2,250 mls/hr Oxytocin/Sodium Chloride (Pitocin/Ns 20 Unit/1000ml Drip) 20 units in 1,000 mls @ 0 mls/hr IV TITR LUCIANA Review of Systems All systems: negative - Vital Signs Vital signs: Vital Signs Pulse BP 88 148/94 10/26/17 16:30 10/26/17 16:30 Temp Pulse Resp BP Pulse Ox 98.2 F 84 16 154/98 97 10/26/17 17:33 10/26/17 18:38 10/26/17 17:33 10/26/17 18:31 10/26/17 18:38 - Physical Exam Breasts: Positive: deferred Cardiovascular: Regular rate Lungs: Positive: Clear to auscultation Abdomen: Positive: normal appearance Genitourinary (Female): Positive: normal external genitalia Uterus: Positive: enlarged Extremities: Positive: normal - Obstetrical FHR: category 1 Uterine Contraction Monitor Mode: External Uterine Contraction Pattern: Irregular Results Result Diagrams: 10/26/17 16:39 Abnormal lab results 10/26/17 Range/Units 16:39 MCHC 35 H (30-34) % RDW 13.1 L (13.2-15.2) % Rabun % (Auto) 7.8 H (0.0-7.3) % Seg Neutrophils % 71.9 H (40.0-70.0) % Seg Neutrophils # 7.8 H (1.8-7.7) K/mm3 All other labs normal. Ultrasound: report reviewed Assessment and Plan - Patient Problems (1) 36 weeks gestation of Onset Date: 10/26/17 Current Visit: Yes Status: Acute Plan to address problem: A: IUP @ 36 5/7 weeks Chronic hypertension History of Preeclampsia x 2 Previous C Section x 2 Desires permanent sterilization P: Admit to L&D for Repeat C Section with BTL (2) Chronic hypertension with superimposed pre-eclampsia Onset Date: 10/08/17 Current Visit: No Status: Acute (3) Previous section Onset Date: 10/08/17 Current Visit: No Status: Acute (4) Encounter for sterilization Onset Date: 10/26/17 Current Visit: Yes Status: Acute
[2017-10-26] MEDS ORDERED: BICITRA ONE (20:45)
[2017-10-26] MEDS ORDERED: REGLAN ONE (20:45)
--- NOTE | 2017-10-26 21:03 | Anesthesia Consultation ---
Anesthesia Consult and Med Hx Date of service: 10/26/17 - Airway Anesthetic Teeth Evaluation: Good (some missing teeth) ROM Head & Neck: Adequate Mental/Hyoid Distance: Adequate Mallampati Class: Class II Intubation Access Assessment: Probably Good - Pre-Operative Health Status ASA Pre-Surgery Classification: ASA2 Proposed Anesthetic Plan: Epidural, Spinal - Pulmonary Hx Asthma: No COPD: No Hx Pneumonia: No - Cardiovascular System Hx Hypertension: Yes - Central Nervous System Hx Seizures: No Hx Psychiatric Problems: No - Endocrine Hx Renal Disease: No Hx End Stage Renal Disease: No Hx Hypothyroidism: No Hx Hyperthyroidism: No - Hematic Hx Anemia: No Hx Sickle Cell Disease: No - Other Systems Hx Alcohol Use: No Hx Obesity: Yes (BMI 39.9)
[2017-10-26] MEDS ORDERED: BENADRYL IV PRN (21:04)
[2017-10-26] MEDS ORDERED: TORADOL IV PRN (21:04)
[2017-10-26] MEDS ORDERED: PHENERGAN PR PRN ×2 (21:04→23:04)
[2017-10-26] MEDS ORDERED: PHENERGAN PO PRN ×2 (21:04→23:04)
[2017-10-26] MEDS ORDERED: DILAUDID IV PRN (21:04)
[2017-10-26] MEDS ORDERED: ZOFRAN IV PRN ×2 (21:04→23:04)
[2017-10-26] MEDS ORDERED: NARCAN 0.4 MG/1 ML IV PRN ×3 (21:04→23:04)
--- NOTE | 2017-10-26 21:04 | Anesthesia Day of Surgery ---
Anesthesia Day of Surgery - Day of Surgery Patient Examined: Yes Patient H&P Reviewed: Yes Patient is NPO: Yes
[2017-10-26] MEDS ORDERED: NACL 0.9% IR ONE ×2 (21:30)
[2017-10-26] MEDS ORDERED: WATER FOR IRRIG STERILE IR ONE ×2 (21:30)
[2017-10-26] MEDS ORDERED: SODIUM CHLORIDE FLUSH SYRINGE 10 ML IV NR ×2 (22:00→23:45)
[2017-10-26] MEDS ORDERED: MORPHINE ONE (22:00)
[2017-10-26] MEDS ORDERED: XYLOCAINE MPF 2% ONE ×2 (22:08)
--- NOTE | 2017-10-26 23:01 | Operative Report ---
Operative Report Operative Report: Date of procedure: 10/26/2017 Pre-operative diagnosis: 1. Intrauterine at 36-5/7 weeks 2. Previous C-sections 2 3. Chronic hypertension 4. History of preeclampsia 5. Desires permanent sterilization Post-operative diagnosis: Same with lower uterine segment adhesions Procedure name(s): 1. Repeat low transverse section 2. Bilateral tubal ligation Surgeon: Des Man MD Naturalist: None Anesthesia: Spinal anesthesia by Dr. Gibbons EBL: 600 mls Findings: A 2902 g female Apgars 8 at 1 minute and 9 at 5 minutes. Clear amniotic fluid. Normal uterus with lower uterine segment adhesions. Normal tubes and ovaries bilaterally. Procedure: After the patient was prepped and draped in usual sterile fashion, and after satisfactory level of epidural anesthesia was obtained, the skin knife was used to make a transverse skin incision through the previous skin scars. The incision was excised down to layer of the fascia, which was nicked in the midline and extended laterally using the Bovie cautery. The rectus muscles were dissected off the rectus fascia both superiorly and inferiorly. The rectus bellies in the midline, and the peritoneum was entered under direct visualization. The peritoneal incision was extended superiorly and inferiorly. Lower uterine segment adhesions were taken down using both sharp and blunt dissection. A bladder flap was created and the bladder blade was then placed. The uterus was scored in a curvilinear linear fashion, entered in the midline revealing clear amniotic fluid. The 's head was delivered onto the surgical field with the aid of a vacuum, and the oropharynx and nasopharynx were bulb suctioned. The rest of the 's body was delivered, cord was doubly clamped and cut and the infant was handed to the waiting respiratory team. Cord blood was then obtained. The placenta was manually removed from the uterus, and the uterus removed from its normal anatomical position. After gentle uterine lavage, the incision was inspected and found to be without extensions. It was then closed in 2 layers using 0 Vicryl suture in a running interlocking fashion, the second layer imbricating the first. Attention was then turned to the tubal ligation. First the right fallopian tube was grasped using Radha, and the Filshie clip was applied to the proximal portion of the tube. Next the left fallopian tube was grasped using the Radha, and the Filshie clip was applied to the proximal portion of the tube. After good hemostasis was achieved, copious amounts or irrigation was performed, and the gutters were suctioned free of blood and blood clots. The Tisseel sealant was sprayed across the uterine incision. The uterus was then returned to its normal anatomical position, and after excellent hemostasis assured, the peritoneum was re-approximated using 3-0 Vicryl suture in a running interlocking fashion, and then the rectus muscles were re-approximated using 3-0 Vicryl suture in a [id number] configuration. The fascia was then re-approximated using 0 Vicryl suture in running interlocking fashion. The subcutaneous layer was made hemostatic using Bovie cautery, the Tisseel sealant was sprayed across the fascial incision and the skin edges re- approximated using 4-0 Vicryl suture in a sub-cuticular fashion. Patient tolerated the procedure well was transported to recovery in stable condition.
[2017-10-26] MEDS ORDERED: TUCKS PAD TP PRN (23:03)
[2017-10-26] MEDS ORDERED: TYLENOL PO PRN (23:03)
[2017-10-26] MEDS ORDERED: MILK OF MAGNESIA PO PRN (23:03)
[2017-10-26] MEDS ORDERED: NORCO 5/325 PO PRN (23:03)
[2017-10-26] MEDS ORDERED: LANSINOH TP PRN (23:03)
[2017-10-26] MEDS ORDERED: SENOKOT PO PRN (23:03)
[2017-10-26] MEDS ORDERED: MYLICON PO PRN (23:03)
--- NOTE | 2017-10-26 23:08 | Post Anesthesia Evaluation ---
- Post Anesthesia Evaluation Airway Patent: Yes Stable Respiratory Function: Yes Nausea/Vomiting: Yes Temp > 96.8F: Yes Pain Manageable: Yes Adequeate Hydration: Yes Anesthesia Complications: No Block Receding Appropriately: Not Applicable Patient on Ventilator: No
[2017-10-26] MEDS: PITOCin/NS 20 UNIT/1000ML DRIP 20 UNITS/1,000 ML BAG IV SCH ×2 (23:19→23:57)
[2017-10-26] MEDS ORDERED: ANCEF/NS 1 GM/50 ML 1 GM/50 ML BAG IV SCH (23:45)
[2017-10-26] MEDS ORDERED: D5LR 1,000 ML IV SCH (23:45)
[2017-10-26] MEDS ORDERED: PITOCin/NS 20 UNIT/1000ML DRIP 20 UNITS/1,000 ML BAG IV SCH (23:45)
[2017-10-27] MEDS: NORMODYNE PO SCH ×3 (00:13→21:32)
[2017-10-27] MEDS ORDERED: APRESOLINE IV ONE (00:50)
[2017-10-27] MEDS: ceFAZolin 1 GM in NACL 0.9% 20 ML IV SCH ×2 (03:21→09:24)
[2017-10-27] MEDS ORDERED: BOOSTRIX IM ONE (06:00)
[2017-10-27] MEDS ORDERED: M-M-R II VACCINE SUB-Q ONE (06:00)
[2017-10-27] MEDS: PRENATAL VITAMIN PO SCH (09:24)
[2017-10-27] MEDS: FEOSOL PO SCH (09:24)
[2017-10-27] MEDS ORDERED: NORMODYNE PO SCH (10:00)
--- NOTE | 2017-10-27 10:02 | Progress Note ---
Assessment and Plan A: POD#1 s/p Repeat c/s with BTL CHTN: Labetalol 300mg PO BID Bottle feeding Pain well controlled Stable P: Routine PP/PO care Encouraged ambulation in room [facility] B[facility] Subjective - Subjective Date of service: 10/27/17 Principal diagnosis: Repeat c/s with BTL Patient reports: appetite normal, voiding normally, pain well controlled, ambulating normally, no flatus, no bowel movement : doing well, bottle feeding Objective - Vital Signs Latest vital signs: Vital Signs Temp Pulse Resp BP Pulse Ox 10/27/17 09:24 84 116/71 10/27/17 05:27 98.3 F 78 20 119/78 96 10/27/17 01:41 98.7 F 84 22 150/104 99 10/27/17 01:00 97.5 F L 80 19 151/92 98 10/27/17 00:58 68 148/93 10/27/17 00:30 65 16 154/94 100 10/27/17 00:27 17 10/27/17 00:15 70 14 159/103 97 10/27/17 00:13 66 158/95 10/27/17 00:00 68 11 L 145/94 99 10/26/17 23:57 16 10/26/17 23:45 67 14 148/94 99 10/26/17 23:30 68 13 149/89 99 10/26/17 23:15 77 16 146/91 98 10/26/17 23:00 74 16 152/83 98 10/26/17 22:56 81 16 139/86 98 10/26/17 22:53 97.6 F 71 16 139/83 98 10/26/17 20:50 80 165/103 10/26/17 20:19 77 151/93 10/26/17 19:55 83 98 10/26/17 19:47 83 154/91 10/26/17 19:42 99.4 F 20 10/26/17 18:38 84 97 10/26/17 18:33 80 97 10/26/17 18:31 81 154/98 10/26/17 18:28 85 97 10/26/17 18:23 82 97 10/26/17 18:18 85 97 10/26/17 18:13 83 98 10/26/17 18:08 85 97 10/26/17 18:03 88 98 10/26/17 18:02 88 146/94 10/26/17 17:33 98.2 F 16 10/26/17 17:30 84 141/93 10/26/17 17:08 83 144/88 10/26/17 16:30 88 148/94 Intake and Output 10/26/17 10/27/17 10/27/17 23:59 07:59 15:59 Intake Total 2979.167 Output Total 400 300 Balance 2579.167 -300 Intake: IV 2979.167 Lactated Ringers 1,000 ml 1000 @ 2250 mls/hr IV PREOP LUCIANA Rx#:[id number] PITOCin/NS 20 UNIT/1000ML 79.167 DRIP 20 units In 1,000 ml @ As Directed IV TITR LUCIANA Rx#:[id number] Output: Urine 400 300 Indwelling Catheter 300 Uretheral (Adhikari) 200 Other: Total, Output Amount 300 # Voids Void 1 Weight 133.356 kg Estimated Blood Loss 600 - Exam Breasts: Present: normal Cardiovascular: Present: Regular rate, Normal S1, Normal S2 Lungs: Present: Clear to auscultation, Normal air movement Abdomen: Present: normal appearance, soft, normal bowel sounds. Absent: distention Vulva: both: normal Uterus: Present: firm, fundal height at umbilicus Extremities: Present: normal Deep Tendon Reflex Grade: Normal +2 Incision: Present: normal, dry, intact, dressed (Pressure dressing intact) - Labs Labs: Abnormal lab results 10/26/17 Range/Units 16:39 MCHC 35 H (30-34) % RDW 13.1 L (13.2-15.2) % Mclean % (Auto) 7.8 H (0.0-7.3) % Seg Neutrophils % 71.9 H (40.0-70.0) % Seg Neutrophils # 7.8 H (1.8-7.7) K/mm3
[2017-10-27 11:05] LABS: Hematocrit 34.9 % (30.3-42.9); Hemoglobin 11.9 gm/dl (10.1-14.3)
[2017-10-27] MEDS: PERCOCET 5/325 PO PRN (21:25)
[2017-10-28] MEDS: PERCOCET 5/325 PO PRN ×3 (05:12→22:04)
[2017-10-28] MEDS ORDERED: BOOSTRIX IM ONE (06:00)
--- NOTE | 2017-10-28 09:42 | Progress Note ---
Assessment and Plan - Patient Problems (1) S/P repeat low transverse Current Visit: Yes Status: Acute Plan to address problem: POD 2 - stable Continue routine postop orders Encouraged ambulation Follow up at [facility] in 1 week for BP check and incision check (2) Chronic hypertension affecting Current Visit: No Status: Acute Plan to address problem: BPs stable Continue routine BP check Subjective - Subjective Date of service: 10/28/17 Principal diagnosis: Repeat LTCS with BTL Patient reports: appetite normal, voiding normally, pain well controlled, flatus , ambulating normally, no bowel movement [place]: doing well, other (breast and bottle feeding) Objective - Vital Signs Latest vital signs: Vital Signs Temp Pulse Resp BP BP Pulse Ox 10/28/17 05:12 18 10/28/17 00:00 98.4 F 98 H 20 136/73 10/27/17 21:32 91 H 122/72 10/27/17 21:25 18 10/27/17 16:29 97.9 F 92 H 18 126/73 99 10/27/17 12:17 97.4 F L 99 H 18 122/99 99 Intake and Output 10/27/17 10/28/17 10/28/17 23:59 07:59 15:59 Intake Total 240 Balance 240 Intake: Oral 240 Other: Total, Intake Amount 240 # Voids Void 1 - Exam Cardiovascular: Present: Regular rate, Normal S1, Normal S2, No murmurs Lungs: Present: Clear to auscultation, Normal air movement Abdomen: Present: normal appearance, soft Vulva: both: normal Uterus: Present: normal, firm, fundal height at umbilicus Extremities: Present: normal Deep Tendon Reflex Grade: Normal +2 Incision: Present: normal, dry, intact
[2017-10-28] MEDS: FEOSOL PO SCH (09:45)
[2017-10-28] MEDS: MOTRIN PO PRN ×2 (09:46→16:51)
[2017-10-28] MEDS: NORMODYNE PO SCH ×2 (09:46→21:59)
--- NOTE | 2017-10-28 09:46 | Discharge Summary ---
Providers - Providers Date of Admission: 10/26/17 15:26 Date of discharge: 10/29/17 Attending physician: SUZANNE BARTON MD Primary care physician: SUZANNE BARTON MD Hospitalization Reason for admission: IUP - , section Delivery: Procedure: repeat low transverse Episiotomy: none Laceration: none Incision: normal, dry, intact Other procedures: tubal ligation complications: none Discharge diagnosis: delivery baby: female Hospital course: Uncomplicated Condition at discharge: Stable Disposition: [id number] TO HOME OR SELFCARE - Discharge Diagnoses (1) S/P repeat low transverse Status: Acute (2) Chronic hypertension affecting Status: Acute Plan - Discharge Medications Prescriptions: Ferrous Sulfate [Feosol 325 MG tab] 325 mg PO BID #60 tablet HYDROcodone/APAP 5-325 [[place] 5/325] 1 each PO Q6HR PRN #30 tablet PRN Reason: Pain Ibuprofen [Motrin] 800 mg PO Q8HR PRN #30 tablet PRN Reason: Moder Pain Unrelieved By [place] Vit Calc,Iron,Folic [ Vitamins] 1 each PO DAILY #30 tablet - Provider Discharge Summary Activity: routine, no sex for 6 weeks, no heavy lifting 4 weeks, no strenuous exercise Diet: routine Instructions: routine Additional instructions: [] Smoking cessation referral if applicable(refer to patient education folder for contact #) [] Refer to [facility] Booklet Call your doctor immediately for: * Fever > 100.5 * Heavy vaginal bleeding ( >1 pad per hour) * Severe persistent headache * Shortness of breath * Reddened, hot, painful area to leg or breast * Drainage or odor from incision. * Keep incision clean and dry at all times and follow doctor's instructions regarding bathing/showering - Follow up plan Follow up: SUZANNE BARTON MD [Primary Care Provider] - 7 Days (Follow up at [facility]/ CONTACT AGENT in 1 week for BP check and incision check)
[2017-10-28] MEDS: PRENATAL VITAMIN PO SCH (09:47)
[2017-10-29] MEDS: PERCOCET 5/325 PO PRN (05:21)
[2017-10-29] MEDS: PRENATAL VITAMIN PO SCH (10:13)
[2017-10-29] MEDS: FEOSOL PO SCH (10:13)
[2017-10-29] MEDS: MOTRIN PO PRN (10:13)
[2017-10-29] MEDS: NORMODYNE PO SCH (10:14)
[2017-10-29] MEDS ORDERED: M-M-R II VACCINE SUB-Q ONE (11:40)
[2017-10-29 13:56] VITALS: BP 147/86
== END 2017-10-29 12:55 | disposition home or self-care (01) | DRG 765 ==
LOC: LD 15:26 → OB 10-27 00:59
PROVIDERS: ADMIT Obstetrics & Gynecology; ATTEND Obstetrics & Gynecology
PROC: 10D00Z1 Extraction of Products of Conception, Low, Open Approach (ICD-10-PCS; principal; 2017-10-26)
PROC: 0UL70CZ Occlusion of Bilateral Fallopian Tubes with Extraluminal Device, Open Approach (ICD-10-PCS; 2017-10-26)
PROC: 3E0234Z Introduction of Serum, Toxoid and Vaccine into Muscle, Percutaneous Approach (ICD-10-PCS; 2017-10-29)
DX: O34.211 Maternal care for low transverse scar from previous cesarean delivery (principal); O99.354 Diseases of the nervous system complicating childbirth; O10.92 Unspecified pre-existing hypertension complicating childbirth; O99.824 Streptococcus B carrier state complicating childbirth; G43.909 Migraine, unspecified, not intractable, without status migrainosus; Z3A.36 36 weeks gestation of pregnancy; Z37.0 Single live birth; Z23 Encounter for immunization; Z79.82 Long term (current) use of aspirin; Z30.2 Encounter for sterilization; O11.4 Pre-existing hypertension with pre-eclampsia, complicating childbirth
CPT/HCPCS: 36415; 85014; 85018; 85025; 86592; 86850; 86900; 86901; 88307; 90471; 90707; 90715; 99211; A6250; C9250; G0463; J0360; J0690; J1170; J1885; J2270; J2590; J2765; J7120; J7121